=== PATIENT | male | born 1970 | race Caucasian/White ===

== ENCOUNTER → 2017-11-11 | Outpatient (CLI) | payer OTHER ==
--- NOTE | 2017-11-13 13:03 | EST ---
EXERCISE STRESS AGE: 47 SEX: M HT: 69" WT: 161 PROTOCOL: Dez Stress test STAGE: III DURATION OF EXERCISE: 9:00 HEART RATE REST: 81 BLOOD PRESSURE REST: 143/74 MAXIMUM HEART RATE ACHIEVED: 155 MAXIMUM BLOOD PRESSURE: 204/75 85% MPHR: 149 100% MPHR: 175 METS: 10.5 INDICATIONS: Chest pain. CLINICAL INFORMATION: Patient was exercised for a total period of 9 minutes. Peak heart rate of 155 was achieved. Maximum blood pressure of 204/75 mmHg was noted. Resting EKG shows normal sinus rhythm with normal PA interval and QRS duration and normal ST-T waves. No ST- segment depression suggestive of ischemia was noted. No dysrhythmias are noted. FINAL IMPRESSION: This stress test is not suggestive of ischemia. Patient's exercise tolerance is normal. Patient did not complain of any chest pain during the test. JESSIE / CHULAN: [id number] /
== END | disposition home or self-care (01) ==
LOC: RADNMMAIN 10:49
PROVIDERS: ATTEND Family Medicine
DX: R07.9 Chest pain, unspecified (principal)
CPT/HCPCS: 93017

== ENCOUNTER → 2017-11-27 | Outpatient (CLI) | payer OTHER ==
--- NOTE | 2017-11-27 14:29 | US ---
EXAMINATION TYPE: US venous doppler duplex LE DATE OF EXAM: 11/27/2017 12:51 PM COMPARISON: NONE CLINICAL HISTORY: M79.89 Other specified soft tissue disorders. abnormal labs. No leg pain, swelling or redness. No hx of blood clots or on blood thinners. SIDE PERFORMED: Bilateral TECHNIQUE: The lower extremity deep venous system is examined utilizing real time linear array sonog arun with graded compression, doppler sonography and color-flow sonography. VESSELS IMAGED: External Iliac Vein (EIV) Common Femoral Vein Deep Femoral Vein Greater Saphenous Vein * Femoral Vein Popliteal Vein Small Saphenous Vein * Proximal Calf Veins (* superficial vessels) Right Leg: Negative for DVT Left Leg: Negative for DVT IMPRESSION: 1. Bilateral lower extremity ultrasound negative for deep venous thrombosis.
== END | disposition home or self-care (01) ==
LOC: RADUSWWP 12:02
PROVIDERS: ATTEND Family Medicine
DX: M79.89 Other specified soft tissue disorders (principal); R20.0 Anesthesia of skin; R07.81 Pleurodynia; R79.89 Other specified abnormal findings of blood chemistry
CPT/HCPCS: 93970

== ENCOUNTER 2018-05-11 14:39 | Emergency (ER) | payer OTHER ==
[2018-05-11 14:45] VITALS: BP 126/75; PULSE 90; RESP 18; TEMP 98.7
[2018-05-11] MEDS ORDERED: IBUPROFEN 800 MG TAB PO STA (15:24)
[2018-05-11] MEDS ORDERED: CYCLOBENZAPRINE 10 MG TAB PO STA (15:24)
--- NOTE | 2018-05-11 16:15 | ED ---
General Adult HPI - General Chief complaint: Back Pain/Injury Stated complaint: back strain Time Seen by Provider: 05/11/18 14:56 Source: patient, RN notes reviewed Mode of arrival: ambulatory Limitations: no limitations - History of Present Illness Initial comments: 48-year-old female with a past medical history of hypertension presents to the emergency department for a chief complaint of back injury occurring about 5 days ago. Patient states he was helping his mother ambulate when she fell and he caught her. He states he remained in a standing position. He did not fall or hit his back. Patient states the pain is to the left of his spine in both the thoracic and lumbar areas. He denies any bladder or bowel changes. He denies any numbness or weakness in the legs. He does admit to mild tingling in the bilateral fingertips. He denies any headache. He states he has not tried Motrin or Tylenol for pain. Patient has no other complaints at this time including shortness of breath, chest pain, abdominal pain, nausea or vomiting, headache, or visual changes. - Related Data Home Medications Medication Instructions Recorded Confirmed Chlorthalidone [Hygroton] 25 mg PO DAILY 05/11/18 05/11/18 Ergocalciferol (Vitamin D2) 50,000 unit PO QMONTH 05/11/18 05/11/18 [Vitamin D2] Famotidine [Pepcid] 20 mg PO BID 05/11/18 05/11/18 Fluticasone Nasal Fletcher [Flonase 1 spray EA NOSTRIL BID 05/11/18 05/11/18 Nasal Fletcher] Lisinopril 20 mg PO DAILY 05/11/18 05/11/18 Naproxen 500 mg PO BID 05/11/18 05/11/18 amLODIPine [Norvasc] 10 mg PO DAILY 05/11/18 05/11/18 Previous Rx's Medication Instructions Recorded Cyclobenzaprine [Flexeril] 5 mg PO TID #12 tablet 05/11/18 Allergies Allergy/AdvReac Type Severity Reaction Status Date / Time No Known Allergies Allergy Verified 05/11/18 15:23 Review of Systems ROS Statement: Those systems with pertinent positive or pertinent negative responses have been documented in the HPI. ROS Other: All systems not noted in ROS Statement are negative. Past Medical History Past Medical History: Hypertension History of Any Multi-Drug Resistant Organisms: None Reported Past Surgical History: Orthopedic Surgery Additional Past Surgical History / Comment(s): right foot surg Past Psychological History: No Psychological Hx Reported Smoking Status: Current every day smoker Past Alcohol Use History: Occasional Past Drug Use History: None Reported General Exam Limitations: no limitations General appearance: alert, in no apparent distress Head exam: Present: atraumatic, normocephalic, normal inspection Eye exam: Present: normal appearance, PERRL, EOMI. Absent: scleral icterus, conjunctival injection, periorbital swelling ENT exam: Present: normal exam, mucous membranes moist Neck exam: Present: normal inspection, full ROM. Absent: tenderness (No neck tenderness), meningismus, lymphadenopathy Respiratory exam: Present: normal lung sounds bilaterally. Absent: respiratory distress, wheezes, rales, rhonchi, stridor Cardiovascular Exam: Present: regular rate, normal rhythm, normal heart sounds. Absent: systolic murmur, diastolic murmur, rubs, gallop, clicks GI/Abdominal exam: Present: soft, normal bowel sounds. Absent: distended, tenderness, guarding, rebound, rigid Extremities exam: Present: normal capillary refill (Capillary refill less than 2 seconds, DP pulses 2+ and equal bilaterally) Back exam: Present: paraspinal tenderness (Minimal left-sided paraspinal thoracic and lumbar tenderness). Absent: vertebral tenderness (No vertebral tenderness of the thoracic or lumbar spines) Neurological exam: Present: alert, oriented X3, CN II-XII intact Psychiatric exam: Present: normal affect, normal mood Course Vital Signs 05/11/18 14:41 Temperature 98.7 F Pulse Rate 90 Respiratory 18 Rate Blood Pressure 126/75 O2 Sat by Pulse 97 Oximetry Medical Decision Making - Medical Decision Making 48-year-old male presents to the emergency department for a chief complaint of back pain times x IV days. Patient was trying to hold up his mother when he injured his back. He did not fall or obtain any other trauma to his back that would cause suspicion for a fracture. He denies numbness tingling weakness or pain in the lower extremities. No bladder or bowel changes. He does have some minimal tingling in the bilateral fingertips however sensation is intact. Discussed with patient that x-ray will likely not show any significance as suspicion for fracture is low. Discussed trying Motrin and Flexeril for pain. I did offer IM medication options which she refused. Discussed following up with orthopedics or possible MRI if symptoms worsen or do not improve. Patient will be given prescription of Flexeril but was advised not to drive or operate machinery while taking this. He will follow up with orthopedics and return if he has any worsening symptoms. Disposition Clinical Impression: Back pain Disposition: HOME SELF-CARE Condition: Good Instructions: Low Back Strain (ED), Acute Low Back Pain (ED), Lower Back Exercises (ED) Additional Instructions: Please take Motrin and Tylenol for pain. Please follow-up with primary care or orthopedics in one to 2 days. Please return to the emergency department if you have any worsening symptoms. Prescriptions: Cyclobenzaprine [Flexeril] 5 mg PO TID #12 tablet Is patient prescribed a controlled substance at d/c from ED?: No Referrals: Carlos Ward MD [Primary Care Provider] - 1-2 days Leopoldo Cristobal DO [Doctor of Osteopathic Medicine] - 1-2 days Time of Disposition: 16:16
== END 2018-05-11 16:35 | disposition home or self-care (01) ==
LOC: EC 14:39
DX: M54.5 Low back pain (principal); M54.6 Pain in thoracic spine; R20.2 Paresthesia of skin; I10 Essential (primary) hypertension; F17.200 Nicotine dependence, unspecified, uncomplicated; Z79.1 Long term (current) use of non-steroidal anti-inflammatories (NSAID); Z79.899 Other long term (current) drug therapy
CPT/HCPCS: 99283

== ENCOUNTER 2018-09-07 16:36 | Emergency (ER) | payer OTHER ==
[2018-09-07] MEDS ORDERED: SODIUM CHLORIDE 0.9% 1,000 ML IV STA ×2 (17:20)
[2018-09-07 17:34] LABS: Basophils # (A) 0.1 k/uL (0-0.2); Basophils % (A) 1 %; Eosinophils % (A) 0 %; HCT 46.6 % (39.0-53.0); HGB 15.2 gm/dL (13.0-17.5); Lymphocytes # (A) 2.5 k/uL (1.0-4.8); Lymphocytes % (A) 23 %; MCH 31.2 pg (25.0-35.0); MCHC 32.7 g/dL (31.0-37.0); MCV 95.5 fL (80.0-100.0); Mean Platelet Volume 6.8; Monocytes # (A) 0.7 k/uL (0-1.0); Monocytes % (A) 7 %; Neutrophils # (A) 7.3 k/uL (1.3-7.7); Neutrophils % (A) 67 %; Platelet Count 236 k/uL (150-450); RBC 4.88 m/uL (4.30-5.90); RDW 13.4 % (11.5-15.5); WBC 10.8 k/uL (3.8-10.6)
[2018-09-07 17:41] LABS: ALT 86 U/L (21-72); AST 92 U/L (17-59); Albumin 4.5 g/dL (3.5-5.0); Alkaline Phosphatase 86 U/L (38-126); Anion Gap 14 mmol/L; Blood Urea Nitrogen 7 mg/dL (9-20); Calcium 9.2 mg/dL (8.4-10.2); Carbon Dioxide 22 mmol/L (22-30); Chloride 99 mmol/L (98-107); Glucose 106 mg/dL (74-99); Magnesium 2.1 mg/dL (1.6-2.3); Phosphorus 3.9 mg/dL (2.5-4.5); Potassium 3.9 mmol/L (3.5-5.1); Sodium 135 mmol/L (137-145); Total Bilirubin 0.5 mg/dL (0.2-1.3); Total Protein 7.1 g/dL (6.3-8.2)
[2018-09-07 17:50] LABS: Alcohol 396 mg/dL
--- NOTE | 2018-09-07 18:01 | ED ---
General Adult HPI - General Chief complaint: Neuro Symptoms/Deficit Stated complaint: Numbness to hands and legs Time Seen by Provider: 09/07/18 17:13 Source: patient Mode of arrival: EMS Limitations: no limitations - History of Present Illness Initial comments: This 48-year-old white male presents with a complaint of some numbness to his hands and feet which is been present over the last 2 days. He denies any previous similar incidents. He denies any injuries. There's been no frostbite. He does drink approximately 140 ounce per day. He apparently was drinking upon EMS arrival as well. He denies any other neurologic complaints. He otherwise is fairly healthy and he states it is fairly active. No other complaints or modifying factors. His sister later does show up and states that he is a severe alcoholic. - Related Data Home Medications Medication Instructions Recorded Confirmed Chlorthalidone [Hygroton] 25 mg PO DAILY 05/11/18 09/07/18 Ergocalciferol (Vitamin D2) 50,000 unit PO QMONTH 05/11/18 09/07/18 [Vitamin D2] Famotidine [Pepcid] 20 mg PO BID 05/11/18 09/07/18 Lisinopril 20 mg PO DAILY 05/11/18 09/07/18 amLODIPine [Norvasc] 10 mg PO DAILY 05/11/18 09/07/18 traZODone HCL 50 - 100 mg PO HS PRN 09/07/18 09/07/18 Previous Rx's Medication Instructions Recorded Ibuprofen [Motrin] 600 mg PO Q6HR PRN #20 tab 05/11/18 Allergies Allergy/AdvReac Type Severity Reaction Status Date / Time No Known Allergies Allergy Verified 09/07/18 16:50 Review of Systems ROS Statement: Those systems with pertinent positive or pertinent negative responses have been documented in the HPI. ROS Other: All systems not noted in ROS Statement are negative. Past Medical History Past Medical History: Hypertension History of Any Multi-Drug Resistant Organisms: None Reported Past Surgical History: Orthopedic Surgery Additional Past Surgical History / Comment(s): right foot surg Past Psychological History: No Psychological Hx Reported Smoking Status: Current every day smoker Past Alcohol Use History: Occasional Past Drug Use History: None Reported General Exam - General Exam Comments Initial Comments: GENERAL: The patient is well nourished and well hydrated. VITAL SIGNS: Heart rate, blood pressure, respiratory rate reviewed as recorded in nurse's notes. EYES: Pupils are round and reactive. Extraocular movements are intact. No conjunctival / lid redness or swelling. ENT: No external evidence of injury, swelling, or ecchymosis. Airway is patent. Throat is clear. NECK: Nontender. No swelling or evidence of injury. No subcutaneous emphysema. Trachea is midline. No thyroid mass. HEART: Regular rate and rhythm. Good peripheral pulses. LUNGS/CHEST: Breath sounds clear and equal bilaterally. No rales, rhonchi, or wheezes. No ecchymosis, subcutaneous emphysema, or tenderness. ABDOMEN: Abdomen soft without tenderness. No palpable masses or organomegaly. No peritoneal signs. No abdominal wall swelling or ecchymosis. EXTREMITIES: No extremity tenderness. Normal muscle tone and function. No thoracolumbar tenderness. NEUROLOGIC: Sensation is grossly intact. Cranial nerve exam reveals face is symmetrical, tongue is midline, speech is clear. The patient does have essentially normal subjective sensation bilaterally. SKIN: No abrasions or ecchymosis is noted. No induration or masses noted. PSYCHIATRIC: Alert and oriented. Appropriate behavior and judgment. Limitations: no limitations Course Vital Signs 09/07/18 09/07/18 09/07/18 16:39 16:43 17:00 Temperature 98.1 F Pulse Rate 79 84 62 Respiratory 18 18 21 Rate Blood Pressure 123/84 153/84 123/84 O2 Sat by Pulse 93 L 94 L 94 L Oximetry 09/07/18 09/07/18 09/07/18 17:30 18:00 18:30 Temperature Pulse Rate 61 59 L 56 L Respiratory 15 21 15 Rate Blood Pressure 107/52 120/73 112/65 O2 Sat by Pulse 93 L 91 L 93 L Oximetry Medical Decision Making - Medical Decision Making The patient was seen and examined. All diagnostics were reviewed. The alcohol is severely elevated. The remainder of labs overall are fairly unremarkable. The patient also had an EKG done which shows a normal sinus rhythm at a rate of 70 with a right bundle-branch block. There is no acute ST-T wave changes noted. There may be a degree of left ventricular hypertrophy. The [place] intervals 146, QRS duration is 120, and the QTC intervals 432. The patient is in no distress on recheck. He is alert and oriented ambulatory. His sister is present as well. She does voice agreement to take responsibility for him. He is agreeable to discharge as well. He is counseled extensively regarding alcohol abuse. He leaves in no identifiable distress - Lab Data Result diagrams: 09/07/18 17:10 09/07/18 17:24 Lab Results 09/07/18 09/07/18 Range/Units 17:10 17:24 WBC 10.8 H (3.8-10.6) k/uL RBC 4.88 (4.30-5.90) m/uL Hgb 15.2 (13.0-17.5) gm/dL Hct 46.6 (39.0-53.0) % MCV 95.5 (80.0-100.0) fL MCH 31.2 (25.0-35.0) pg MCHC 32.7 (31.0-37.0) g/dL RDW 13.4 (11.5-15.5) % Plt Count 236 (150-450) k/uL Neutrophils % 67 % Lymphocytes % 23 % Monocytes % 7 % Eosinophils % 0 % Basophils % 1 % Neutrophils # 7.3 (1.3-7.7) k/uL Lymphocytes # 2.5 (1.0-4.8) k/uL Monocytes # 0.7 (0-1.0) k/uL Eosinophils # 0.0 (0-0.7) k/uL Basophils # 0.1 (0-0.2) k/uL Sodium 135 L (137-145) mmol/L Potassium 3.9 (3.5-5.1) mmol/L Chloride 99 (98-107) mmol/L Carbon Dioxide 22 (22-30) mmol/L Anion Gap 14 mmol/L BUN 7 L (9-20) mg/dL Creatinine 0.78 (0.66-1.25) mg/dL Est GFR (CKD-EPI)AfAm >90 (>60 ml/min/1.73 sqM) Est GFR (CKD-EPI)NonAf >90 (>60 ml/min/1.73 sqM) Glucose 106 H (74-99) mg/dL Calcium 9.2 (8.4-10.2) mg/dL Phosphorus 3.9 (2.5-4.5) mg/dL Magnesium 2.1 (1.6-2.3) mg/dL Total Bilirubin 0.5 (0.2-1.3) mg/dL AST 92 H (17-59) U/L ALT 86 H (21-72) U/L Alkaline Phosphatase 86 (38-126) U/L Total Protein 7.1 (6.3-8.2) g/dL Albumin 4.5 (3.5-5.0) g/dL TSH 0.421 L (0.465-4.680) mIU/L Serum Alcohol 396 H* mg/dL Disposition Clinical Impression: Bilateral hand numbness, Numbness and tingling of both feet, Alcohol into xication, Alcohol abuse Disposition: HOME SELF-CARE Condition: Fair Instructions (If sedation given, give patient instructions): Alcohol Intoxication (ED), Abuse of Alcohol (ED), Paresthesia (ED) Additional Instructions: Please take a multivitamin and a B vitamin daily. Please avoid further alcohol use. Is patient prescribed a controlled substance at d/c from ED?: No Referrals: Carlos Ward MD [Primary Care Provider] - 1-2 days Time of Disposition: 20:37
[2018-09-07 20:57] VITALS: BP 120/69; PULSE 64; RESP 16; TEMP 99.4
== END 2018-09-07 20:58 | disposition home or self-care (01) ==
LOC: EC 16:36
DX: R20.0 Anesthesia of skin (principal); R20.2 Paresthesia of skin; F10.129 Alcohol abuse with intoxication, unspecified; I45.10 Unspecified right bundle-branch block; I10 Essential (primary) hypertension; F17.200 Nicotine dependence, unspecified, uncomplicated; Z79.899 Other long term (current) drug therapy
CPT/HCPCS: 36415; 80053; 80320; 83735; 84100; 84443; 85025; 93005; 96360; 99284

== ENCOUNTER 2019-04-20 11:23 | Emergency (ER) | payer OTHER ==
[2019-04-20] MEDS ORDERED: SODIUM CHLORIDE 0.9% 1,000 ML IV STA ×2 (11:51)
[2019-04-20] MEDS ORDERED: ASPIRIN 81 MG PO STA (11:51)
--- NOTE | 2019-04-20 11:59 | ED ---
General Adult HPI - General Chief complaint: Recheck/Abnormal Lab/Rx Stated complaint: Back and chest pain, High BP Time Seen by Provider: 04/20/19 11:38 Source: patient, RN notes reviewed, old records reviewed Mode of arrival: wheelchair Limitations: no limitations - History of Present Illness Initial comments: Jassi is a 49-year-old male, presents emergency department today with his sister for concerns were unable to take care of himself. He has been off of his insurance and medications for high blood pressure. The past year. He comes in today with complaints of chest pain and back pain. He reports he's been having this for the past year after he tried to pick his mother up from falling. Patient reportedly lives alone this time after his mother's passing. Patient reports that pain is worse with certain movements. He states he is a smoker. Patient felt like the pain is becoming more so he decided to come into emergency room today. His previous primary care doctor Dr. Ward. - Related Data Home Medications Medication Instructions Recorded Confirmed Chlorthalidone [Hygroton] 25 mg PO DAILY 05/11/18 09/07/18 Ergocalciferol (Vitamin D2) 50,000 unit PO QMONTH 05/11/18 09/07/18 [Vitamin D2] Famotidine [Pepcid] 20 mg PO BID 05/11/18 09/07/18 Lisinopril 20 mg PO DAILY 05/11/18 09/07/18 amLODIPine [Norvasc] 10 mg PO DAILY 05/11/18 09/07/18 traZODone HCL 50 - 100 mg PO HS PRN 09/07/18 09/07/18 Previous Rx's Medication Instructions Recorded Ibuprofen [Motrin] 600 mg PO Q6HR PRN #20 tab 05/11/18 Chlorthalidone [Hygroton] 25 mg PO DAILY #10 tablet 04/20/19 Lisinopril 20 mg PO DAILY #10 tab 04/20/19 amLODIPine [Norvasc] 10 mg PO DAILY #10 tablet 04/20/19 Allergies Allergy/AdvReac Type Severity Reaction Status Date / Time No Known Allergies Allergy Verified 04/20/19 11:37 Review of Systems ROS Statement: Those systems with pertinent positive or pertinent negative responses have been documented in the HPI. ROS Other: All systems not noted in ROS Statement are negative. Past Medical History Past Medical History: Hypertension History of Any Multi-Drug Resistant Organisms: None Reported Past Surgical History: Orthopedic Surgery Additional Past Surgical History / Comment(s): right foot surg Past Psychological History: No Psychological Hx Reported Smoking Status: Current every day smoker Past Alcohol Use History: Occasional Past Drug Use History: None Reported General Exam - General Exam Comments Initial Comments: 49-year-old male. Alert and oriented. No distress. Limitations: no limitations General appearance: alert, in no apparent distress Head exam: Present: atraumatic, normocephalic, normal inspection Eye exam: Present: normal appearance, PERRL, EOMI. Absent: scleral icterus, conjunctival injection, periorbital swelling ENT exam: Present: normal exam, mucous membranes moist Neck exam: Present: normal inspection. Absent: tenderness, meningismus, lymphadenopathy Respiratory exam: Present: normal lung sounds bilaterally, other (Patient has tenderness over the left lower rib. Tenderness over the midthoracic spine.). Absent: respiratory distress, wheezes, rales, rhonchi, stridor Cardiovascular Exam: Present: regular rate, normal rhythm, normal heart sounds. Absent: systolic murmur, diastolic murmur, rubs, gallop, clicks GI/Abdominal exam: Present: soft, normal bowel sounds. Absent: distended, tenderness, guarding, rebound, rigid Extremities exam: Present: normal inspection, full ROM, normal capillary refill. Absent: tenderness, pedal edema, joint swelling, calf tenderness Back exam: Present: normal inspection Neurological exam: Present: alert, oriented X3, CN II-XII intact Psychiatric exam: Present: normal affect, normal mood Skin exam: Present: warm, dry, intact, normal color. Absent: rash Course Vital Signs 04/20/19 04/20/19 04/20/19 11:32 14:00 14:40 Temperature 97.5 F L 98 F Pulse Rate 88 89 87 Respiratory 18 16 16 Rate Blood Pressure 155/104 132/92 139/87 O2 Sat by Pulse 97 98 99 Oximetry Medical Decision Making - Medical Decision Making 49 year old male presents today for concern for chest and back pain for one year. He was brought by his sister, she is concerned that he does not take care of himself. Patient has been declining to go to doctor and has been depressed since his mother dying. Patient is a daily drinker. Patient denies suicidal ideation or plan at this time. He states he wants to have a refill of his blood pressure medication and follow up with PCP. Patient labs and EKG and CXR are normal. Patient alcohol level is high, but is able to ambulate and plans to go home with his sister. Discussed chest and bakc pain seem musculoskeletal as it is reporducible. Discussed return parameters. - Lab Data Result diagrams: 04/20/19 11:55 04/20/19 11:55 Lab Results 04/20/19 04/20/19 04/20/19 Range/Units 11:55 11:55 11:55 WBC 5.3 (3.8-10.6) k/uL RBC 5.02 (4.30-5.90) m/uL Hgb 16.7 (13.0-17.5) gm/dL Hct 48.1 (39.0-53.0) % MCV 95.7 (80.0-100.0) fL MCH 33.3 (25.0-35.0) pg MCHC 34.8 (31.0-37.0) g/dL RDW 13.2 (11.5-15.5) % Plt Count 223 (150-450) k/uL Neutrophils % 44 % Lymphocytes % 42 % Monocytes % 8 % Eosinophils % 1 % Basophils % 2 % Neutrophils # 2.3 (1.3-7.7) k/uL Lymphocytes # 2.2 (1.0-4.8) k/uL Monocytes # 0.4 (0-1.0) k/uL Eosinophils # 0.1 (0-0.7) k/uL Basophils # 0.1 (0-0.2) k/uL PT (9.0-12.0) sec INR (<1.2) APTT (22.0-30.0) sec Sodium 146 H (137-145) mmol/L Potassium 4.7 (3.5-5.1) mmol/L Chloride 111 H (98-107) mmol/L Carbon Dioxide 24 (22-30) mmol/L Anion Gap 11 mmol/L BUN 7 L (9-20) mg/dL Creatinine 0.75 (0.66-1.25) mg/dL Est GFR (CKD-EPI)AfAm >90 (>60 ml/min/1.73 sqM) Est GFR (CKD-EPI)NonAf >90 (>60 ml/min/1.73 sqM) Glucose 107 H (74-99) mg/dL Calcium 8.8 (8.4-10.2) mg/dL Magnesium 2.1 (1.6-2.3) mg/dL Total Bilirubin 0.3 (0.2-1.3) mg/dL AST 94 H (17-59) U/L ALT 58 (21-72) U/L Alkaline Phosphatase 107 (38-126) U/L Troponin I (0.000-0.034) ng/mL NT-Pro-B Natriuret Pep 57 pg/mL Total Protein 7.7 (6.3-8.2) g/dL Albumin 4.7 (3.5-5.0) g/dL Amylase 62 (30-110) U/L Lipase 261 (23-300) U/L Urine Opiates Screen (NotDetected) Ur Oxycodone Screen (NotDetected) Urine Methadone Screen (NotDetected) Ur Propoxyphene Screen (NotDetected) Ur Barbiturates Screen (NotDetected) U Tricyclic Antidepress (NotDetected) Ur Phencyclidine Scrn (NotDetected) Ur Amphetamines Screen (NotDetected) U Methamphetamines Scrn (NotDetected) U Benzodiazepines Scrn (NotDetected) Urine Cocaine Screen (NotDetected) U Marijuana (THC) Screen (NotDetected) Serum Alcohol 431 H* mg/dL 04/20/19 04/20/19 04/20/19 Range/Units 11:55 11:55 14:00 WBC (3.8-10.6) k/uL RBC (4.30-5.90) m/uL Hgb (13.0-17.5) gm/dL Hct (39.0-53.0) % MCV (80.0-100.0) fL MCH (25.0-35.0) pg MCHC (31.0-37.0) g/dL RDW (11.5-15.5) % Plt Count (150-450) k/uL Neutrophils % % Lymphocytes % % Monocytes % % Eosinophils % % Basophils % % Neutrophils # (1.3-7.7) k/uL Lymphocytes # (1.0-4.8) k/uL Monocytes # (0-1.0) k/uL Eosinophils # (0-0.7) k/uL Basophils # (0-0.2) k/uL PT 9.5 (9.0-12.0) sec INR 0.9 (<1.2) APTT 25.6 (22.0-30.0) sec Sodium (137-145) mmol/L Potassium (3.5-5.1) mmol/L Chloride (98-107) mmol/L Carbon Dioxide (22-30) mmol/L Anion Gap mmol/L BUN (9-20) mg/dL Creatinine (0.66-1.25) mg/dL Est GFR (CKD-EPI)AfAm (>60 ml/min/1.73 sqM) Est GFR (CKD-EPI)NonAf (>60 ml/min/1.73 sqM) Glucose (74-99) mg/dL Calcium (8.4-10.2) mg/dL Magnesium (1.6-2.3) mg/dL Total Bilirubin (0.2-1.3) mg/dL AST (17-59) U/L ALT (21-72) U/L Alkaline Phosphatase (38-126) U/L Troponin I <0.012 (0.000-0.034) ng/mL NT-Pro-B Natriuret Pep pg/mL Total Protein (6.3-8.2) g/dL Albumin (3.5-5.0) g/dL Amylase (30-110) U/L Lipase (23-300) U/L Urine Opiates Screen Not Detected (NotDetected) Ur Oxycodone Screen Not Detected (NotDetected) Urine Methadone Screen Not Detected (NotDetected) Ur Propoxyphene Screen Not Detected (NotDetected) Ur Barbiturates Screen Not Detected (NotDetected) U Tricyclic Antidepress Not Detected (NotDetected) Ur Phencyclidine Scrn Not Detected (NotDetected) Ur Amphetamines Screen Not Detected (NotDetected) U Methamphetamines Scrn Not Detected (NotDetected) U Benzodiazepines Scrn Not Detected (NotDetected) Urine Cocaine Screen Not Detected (NotDetected) U Marijuana (THC) Screen Not Detected (NotDetected) Serum Alcohol mg/dL 04/20/19 16:14 EKG performed at 12:00 shows normal sinus rhythm RSR, QR pattern in V1 suggesting right ventricular conduction delay. Minimal criteria for LVH may be normal variant. Borderline EKG. Ventricular rate of 69 bpm. [place] interval is 128 ms. QRS ration 110 ms. QT QTc is 46/435 ms. - Radiology Data Radiology results: report reviewed CXR shows no acute cardiopulmonary process. Underlying COPD. Disposition Clinical Impression: ETOH abuse, Chronic back pain, Hypertension, Medication refill Disposition: HOME SELF-CARE Condition: Good Instructions (If sedation given, give patient instructions): Abuse of Alcohol (ED) Additional Instructions: Follow-up with services for reinstating your insurance and PCP. Recommended taking the medications as prescribed. Follow-up with your primary care doctor. Return to the emergency department if any alarming signs or symptoms occur. Prescriptions: Chlorthalidone [Hygroton] 25 mg PO DAILY #10 tablet Lisinopril 20 mg PO DAILY #10 tab amLODIPine [Norvasc] 10 mg PO DAILY #10 tablet Is patient prescribed a controlled substance at d/c from ED?: No Referrals: Carlos Ward MD [Primary Care Provider] - 1-2 days Time of Disposition: 14:16
[2019-04-20 12:18] LABS: Basophils # (A) 0.1 k/uL (0-0.2); Basophils % (A) 2 %; Eosinophils # (A) 0.1 k/uL (0-0.7); Eosinophils % (A) 1 %; HCT 48.1 % (39.0-53.0); HGB 16.7 gm/dL (13.0-17.5); Lymphocytes # (A) 2.2 k/uL (1.0-4.8); Lymphocytes % (A) 42 %; MCH 33.3 pg (25.0-35.0); MCHC 34.8 g/dL (31.0-37.0); MCV 95.7 fL (80.0-100.0); Mean Platelet Volume 6.4; Monocytes # (A) 0.4 k/uL (0-1.0); Monocytes % (A) 8 %; Neutrophils # (A) 2.3 k/uL (1.3-7.7); Neutrophils % (A) 44 %; Platelet Count 223 k/uL (150-450); RBC 5.02 m/uL (4.30-5.90); RDW 13.2 % (11.5-15.5); WBC 5.3 k/uL (3.8-10.6)
--- NOTE | 2019-04-20 12:18 | XR ---
EXAMINATION TYPE: XR chest 2V DATE OF EXAM: 04/20/2019 COMPARISON: 08/23/2012 HISTORY: Chest pain TECHNIQUE: Frontal and lateral views of the chest are obtained. FINDINGS: There is no focal air space opacity, pleural effusion, or pneumothorax seen. The cardiac silhouette size is within normal limits. The osseous structures are intact. Increased retrosternal airspace and flattening of the diaphragms on the lateral view suggests underlying COPD. Mild multilev el degenerative changes of the spine. IMPRESSION: No acute cardiopulmonary process. Underlying COPD.
[2019-04-20 12:21] LABS: INR 0.9 (<1.2); Partial Thromboplastin Time 25.6 sec (22.0-30.0); Prothrombin Time 9.5 sec (9.0-12.0)
[2019-04-20 12:24] LABS: ALT 58 U/L (21-72); AST 94 U/L (17-59); African American GFR (CKD) >90 (>60 ml/min/1.73 sqM); Albumin 4.7 g/dL (3.5-5.0); Alkaline Phosphatase 107 U/L (38-126); Amylase 62 U/L (30-110); Anion Gap 11 mmol/L; Blood Urea Nitrogen 7 mg/dL (9-20); Calcium 8.8 mg/dL (8.4-10.2); Carbon Dioxide 24 mmol/L (22-30); Chloride 111 mmol/L (98-107); Glucose 107 mg/dL (74-99); Magnesium 2.1 mg/dL (1.6-2.3); Potassium 4.7 mmol/L (3.5-5.1); Sodium 146 mmol/L (137-145); Total Bilirubin 0.3 mg/dL (0.2-1.3); Total Protein 7.7 g/dL (6.3-8.2)
[2019-04-20 12:35] LABS: Alcohol 431 mg/dL
[2019-04-20 14:00] VITALS: RESP 16
[2019-04-20 14:25] LABS: Amphetamine Screen,Urine Not Detected (NotDetected); Barbiturate Screen,Urine Not Detected (NotDetected); Benzodiazepines Screen,Urine Not Detected (NotDetected); Cocaine Screen,Urine Not Detected (NotDetected); Methadone Screen, Urine Not Detected (NotDetected); Opiate Screen,Urine Not Detected (NotDetected); Oxycodone Screen, Urine Not Detected (NotDetected); Phencyclidine Screen,Urine Not Detected (NotDetected); Tricyclic Antidepressant,Urine Not Detected (NotDetected); Urn Cannabinoid Scrn Not Detected (NotDetected)
[2019-04-20 14:41] VITALS: BP 139/87; PULSE 87; TEMP 98
== END 2019-04-20 14:41 | disposition home or self-care (01) ==
LOC: EC 11:23
DX: F10.10 Alcohol abuse, uncomplicated (principal); G89.29 Other chronic pain; M54.9 Dorsalgia, unspecified; I10 Essential (primary) hypertension; Z76.0 Encounter for issue of repeat prescription; F17.200 Nicotine dependence, unspecified, uncomplicated; Z79.899 Other long term (current) drug therapy
CPT/HCPCS: 36415; 71046; 80053; 80306; 80320; 82150; 83690; 83735; 83880; 84484; 85025; 85610; 85730; 93005; 96360; 96361; 99285